=== PATIENT | male | born 1950 | race Caucasian/White ===

== ENCOUNTER 2020-07-17 19:54 | Emergency (ER) | payer MEDICARE, OTHER ==
[~2020-07-17] VITALS: Ht 172.7 cm; Wt 81.6 kg
[~2020-07-17 19:54] MED LIST: ACIPHEX20 MG PO; ASA-CA CARB-MA325 MG; ASPIRIN ENTERI325 MG PO; BENICAR20 MG PO; CALCIUM600 M1; ENTOCORT EC3 M1; MELOXICAM7.5 MG PO; METFORMIN HCL500 MG PO; METOPROLOL SUCC50 MG PO; SIMVASTATIN40 MG PO; SPIRIVA18 MCG INH; Z.0.ACIPHEX20 MG; Z.0.BENICAR20 MG; Z.0.METOPROLOL SUCC5; Z.0.MOBIC7.5 MG; Z.0.SIMVASTATIN40 MG; ZOLPIDEM TART12.5 MG PO; ZOLPIDEM TARTRA10 MG PO; [UNRECOGNIZED DRUG - OTHER]; [UNRECOGNIZED DRUG - OTHER]; calcium PO; folic acid PO
[2020-07-17] MEDS ORDERED: HYDROCODONE/APAP 5MG-325MG TAB PO ONE (20:15)
[2020-07-17] MEDS ORDERED: DIPHTH/TETANUS/ACEL. PERTUSSIS 0.5 ML SYR IM ONE (20:15)
== END 2020-07-17 20:44 | disposition home or self-care (01) ==
LOC: FSED 20:00
DX: S68.022A Partial traumatic metacarpophalangeal amputation of left thumb, initial encounter (principal); W29.3XXA Contact with powered garden and outdoor hand tools and machinery, initial encounter; Y92.008 Other place in unspecified non-institutional (private) residence as the place of occurrence of the external cause; E11.9 Type 2 diabetes mellitus without complications; I10 Essential (primary) hypertension; E78.5 Hyperlipidemia, unspecified; Z95.1 Presence of aortocoronary bypass graft
CPT/HCPCS: 36415; 82948; 99283